=== PATIENT | female | born 1985 | race Caucasian/White ===

== ENCOUNTER 2017-05-22 22:22 | Emergency (ER) | payer OTHER ==
[2017-05-22] MEDS ORDERED: Cephalexin 500 MG Cap PO ONE (22:23)
[2017-05-22] MEDS ORDERED: Acetaminophen/HYDROcodone 325-5 MG Tab PO ONE (22:23)
[2017-05-22] MEDS ORDERED: Lidocaine 1% 20 ML MDV INJECT ONE (22:50)
[2017-05-22 23:30] LABS: CHLORIDE,CL 104 mEq/L (98-106); SODIUM,NA 142 mEq/L (136-145)
--- NOTE | 2017-05-22 23:41 | EDM.PDOC ---
ED HPI GENERAL MEDICAL PROBLEM - General Chief Complaint: General Stated Complaint: INFECTED FINGER Time Seen by Provider: 05/22/17 22:40 Source of Information: Reports: Patient History Limitations: Reports: No Limitations - History of Present Illness INITIAL COMMENTS - FREE TEXT/NARRATIVE: Doris is a 31 year old female who presents to the ER with complaints of right 5th finger pain, swelling, and redness. She reports that she fractured that finger awhile back. She had surgery on that finger ~ 2 months ago. She reports that the hand surgeon was out of [place], as no one in the area would operate on her. She reports that he put pins in that finger. She is unsure if/when they are supposed to be taken out. She does report about a month ago, they were concerned that she may have an "infection in her bone." She reports the surgeon had to remove part of the joint because of severe osteoarthritis. She reports she has a follow up appointment scheduled with him in June 19. She reports that starting yesterday she noticed that her right 5th finger was more swollen and red. She reports that it has gradually gotten worse since then. She denies any injury to the affected finger. She did have an appointment scheduled in the clinic for tomorrow, but her significant other made her come to the ER tonight as he was concerned it was worsening. Patient reports she has a high pain tolerance, but does report some discomfort. She has limited range of motion in the affected finger. She denies any numbness or tingling. Denies any fever or chills. Does report with her fibromyalgia she often times has a low grade fever. Denies any other symptoms. Reports she has otherwise been feeling well. Onset Date: 05/20/17 Duration: Getting Worse Location: Reports: Upper Extremity, Right Quality: Reports: Throbbing Severity: Moderate Improves with: Reports: None Worsens with: Reports: Movement Context: Reports: Activity Associated Symptoms: Reports: No Other Symptoms. Denies: Confusion, Chest Pain , Cough, cough w sputum, Diaphoresis, Fever/Chills, Headaches, Loss of Appetite , Malaise, Nausea/Vomiting, Rash, Seizure, Shortness of Breath, Syncope, Weakness Treatments [employer] OFFICER: Reports: Acetaminophen, NSAIDS Right 5-Little finger Pain Score (Numeric/FACES): 6 - Related Data Allergies Allergy/AdvReac Type Severity Reaction Status Date / Time No Known Allergies Allergy Verified 05/22/17 22:26 Home Meds: Home Meds Cephalexin 500 mg PO QID 10 Days #40 capsule 05/22/17 [Rx] ClonazePAM [KlonoPIN] 0.5 mg PO DAILY 05/22/17 [History] DULoxetine HCl [Duloxetine HCl] 60 mg PO DAILY 05/22/17 [History] Metoprolol Succinate/HCTZ [Metoprolol ER-Hctz 25-12.5 mg] 1 tab PO DAILY [History] Naltrexone HCl/Bupropion HCl [Contrave ER 8-90 mg Tablet] 90 mg PO DAILY [History] Pregabalin [Lyrica] 150 mg PO DAILY 05/22/17 [History] ED ROS GENERAL - Review of Systems Review Of Systems: ROS reveals no pertinent complaints other than HPI. Constitutional: Reports: No Symptoms. Denies: Fever, Chills, Malaise, Weakness , Fatigue, Diaphoresis, Decreased Appetite Respiratory: Reports: No Symptoms. Denies: Shortness of Breath, Cough Cardiovascular: Reports: No Symptoms, Edema (right 5th finger). Denies: Chest Pain, Dyspnea on Exertion, Lightheadedness, Palpitations Endocrine: Reports: No Symptoms. Denies: Fatigue GI/Abdominal: Reports: No Symptoms : Reports: No Symptoms Musculoskeletal: Reports: Joint Pain (right 5th finger), Joint Swelling (right 5th finger) Skin: Reports: Erythema (right 5th finger), Change in Color (right 5th finger) Neurological: Reports: No Symptoms. Denies: Dizziness, Headache, Numbness, Syncope, Tingling Psychiatric: Reports: No Symptoms Hematologic/Lymphatic: Reports: No Symptoms Immunologic: Reports: No Symptoms ED EXAM, GENERAL - Physical Exam Exam: See Below Exam Limited By: No Limitations General Appearance: Alert, WD/WN, No Apparent Distress Respiratory/Chest: No Respiratory Distress, Lungs Clear, Normal Breath Sounds, No Accessory Muscle Use, Chest Non-Tender Cardiovascular: Normal Peripheral Pulses, Regular Rate, Rhythm, No Edema, No Gallop, No JVD, No Murmur, No Rub Extremities: Normal Capillary Refill, Joint Swelling (right 5th finger), Limited Range of Motion (right 5th finger), Increased Warmth (right 5th finger) , Redness (right 5th finger). No: Arm Pain Neurological: Alert, Oriented, CN II-XII Intact, Normal Cognition, Normal Gait, Normal Reflexes, No Motor/Sensory Deficits Psychiatric: Normal Affect, Normal Mood Skin Exam: Erythema (right 5th finger), Increased Warmth (right 5th finger) Lymphatic: No Adenopathy Course - Vital Signs Last Recorded V/S: Last Vital Signs Temp 99.1 F 05/22/17 22:35 Pulse 85 05/22/17 22:35 Resp 18 05/22/17 22:35 BP 113/78 05/22/17 22:35 Pulse Ox 98 05/22/17 22:35 - Orders/Labs/Meds Orders: Active Orders 24 hr Category Date Time Status Fingers Fifth Digit Rt F9 [CR] Stat Exams 05/22/17 22:47 Taken CULTURE WOUND [RM] Stat Lab 05/22/17 22:50 Ordered Labs: Laboratory Tests 05/22/17 05/22/17 05/22/17 Range/Units 23:05 23:05 23:05 WBC 10.9 H (5.0-10.0) 10^3/uL RBC 4.80 (4.00-5.50) 10^6/uL Hgb 14.2 (12.0-16.0) g/dL Hct 41.3 (37.0-47.0) % MCV 86.0 (82.0-94.0) fL MCH 29.6 (27.0-32.0) pg MCHC 34.4 (33.0-38.0) g/dL RDW Coeff of Kristin 12.8 (11.0-15.0) % Plt Count 264 (150-400) 10^3/uL Neut % (Auto) 64.6 (35-85) % Lymph % (Auto) 26.6 (10-55) % [place] % (Auto) 5.9 (0-16) % Eos % (Auto) 2.7 (0-5) % Baso % (Auto) 0.2 (0-3) % Neut # (Auto) 7.05 H (1.80-7.00) 10^3/uL Lymph # (Auto) 2.91 (1.00-4.80) 10^3/uL [place] # (Auto) 0.64 (0.00-0.80) 10^3/uL Eos # (Auto) 0.30 (0.00-0.45) 10^3/uL Baso # (Auto) 0.02 10^3/uL Sodium 142 (136-145) mEq/L Potassium 4.3 (3.5-5.0) mEq/L Chloride 104 (98-106) mEq/L Carbon Dioxide 26 (21-32) mmol/L BUN 13 D (7-18) mg/dL Creatinine 1.2 H (0.6-1.0) mg/dL Est Cr Clr Drug Dosing 53.72 mL/min Estimated GFR (MDRD) 52 L (>=60) mL/min Glucose 108 H (75-99) mg/dL Lactic Acid 0.7 (0.4-2.0) mmol/L Calcium 9.3 (8.4-10.1) mg/dL C-Reactive Protein < 0.2 L (0.2-0.8) mg/dL Meds: Medications Discontinued Medications Generic Name Dose Route Start Last Admin Trade Name Freq PRN Reason Stop Dose Admin Hydrocodone Bitart/Acetaminophen 1 packet 05/22/17 23:55 05/23/17 00:08 Take Home: Acetaminophen/Hydrocod, 2 Tab Pack PO 05/22/17 23:56 1 packet ONETIME ONE Administration Cephalexin 1 packet 05/22/17 23:55 05/23/17 00:08 Take Home: Cephalexin 500 Mg, 4 Cap Pack PO 05/22/17 23:56 1 packet ONETIME ONE Administration Lidocaine HCl 20 ml 05/22/17 22:50 05/23/17 00:08 Xylocaine 1% INJECT 05/22/17 22:51 1 ml ONETIME ONE Administration - Re-Assessments/Exams Free Text/Narrative Re-Assessment/Exam: 1% lidocaine used to numb finger. I & D performed without difficulty. Scant amount of pus drained and culture collected. Xray and lab results reviewed with patient and significant other. PLEASE SEE NURSES NOTE FOR PAST MEDICAL/SURGICAL HISTORY, SOCIAL HISTORY, AND FAMILY HISTORY. Departure - Departure Time of Disposition: 23:46 Disposition: Home, Self-Care 01 Condition: Fair Clinical Impression: Cellulitis and abscess of finger, unspecified - Discharge Information Prescriptions: Cephalexin 500 mg PO QID 10 Days #40 capsule Forms: ED Department Discharge Additional Instructions: Meds as directed. Pain medications PRN for severe pain. Tylenol or ibuprofen for moderate pain. Ice and elevate affected finger. Will notify patient of radiologist report of Xray once available. Will notify patient of culture and sensitivity results. Will consult with hand specialist tomorrow. Will likely need referral to hand surgeon. Follow up with PCP or Sunday, sooner if finger worsens or onset of fever. - My Orders Last 24 Hours: My Active Orders 05/22/17 22:47 Fingers Fifth Digit Rt F9 [CR] Stat 05/22/17 22:50 CULTURE WOUND [RM] Stat - Assessment/Plan Last 24 Hours: My Active Orders 05/22/17 22:47 Fingers Fifth Digit Rt F9 [CR] Stat 05/22/17 22:50 CULTURE WOUND [RM] Stat
[2017-05-22] MEDS ORDERED: Take Home: Cephalexin 500 MG Cap, 4 Cap Pack PO ONE (23:55)
[2017-05-22] MEDS ORDERED: Take Home: Acetaminophen/HYDROcodone 325-5 MG, 2 Tab Pack PO ONE (23:55)
== END 2017-05-23 00:17 | disposition home or self-care (01) ==
LOC: CC.ED 22:22
DX: L03.011 Cellulitis of right finger (principal); L02.511 Cutaneous abscess of right hand; Z79.899 Other long term (current) drug therapy
CPT/HCPCS: 10060; 36415; 73140; 80048; 83605; 85025; 86140; 87070; 87077; 87186; 99284; A9270; 96372